=== PATIENT | male | born 1970 | race Caucasian/White ===

== ENCOUNTER 2018-01-14 21:58 | Emergency (ER) | payer BC ==
[2018-01-14 22:46] LABS: Anion Gap 14 mmol/L (10-20); BUN (Urea Nitrogen) 19 mg/dL (8.9-20.6); Calc. Creatinine Clearance 0 mL/min (70-130); Calcium 9.4 mg/dL (7.8-10.44); Carbon Dioxide 30 mmol/L (22-29); Chloride 98 mmol/L (98-107); Estimated GFR-MDRD 54; Glucose 77 mg/dL (70-105); Potassium 3.8 mmol/L (3.5-5.1); Sodium 138 mmol/L (136-145)
[2018-01-14] MEDS ORDERED: Ketorolac Tromethamine 60 MG/2 ML VIAL ONE (22:51)
[2018-01-14] MEDS ORDERED: Diazepam 5 MG TAB ONE (22:51)
--- NOTE | 2018-01-14 23:15 | RAD ---
FOUR VIEWS OF THE RIGHT KNEE: 01/14/18 COMPARISON: None. HISTORY: Chronic pain. FINDINGS: No knee joint effusion, fracture, or evidence of dislocation. There is mild patellofemoral joint spac e narrowing with posterior patellar osteophyte formation. IMPRESSION: No acute osseous abnormality. POS: LAURIE
== END 2018-01-14 23:33 | disposition home or self-care (01) ==
LOC: SCSER 21:58
DX: M70.41 Prepatellar bursitis, right knee (principal); G89.29 Other chronic pain; M54.5 Low back pain; E78.5 Hyperlipidemia, unspecified; J45.909 Unspecified asthma, uncomplicated; F17.220 Nicotine dependence, chewing tobacco, uncomplicated; Z79.899 Other long term (current) drug therapy
CPT/HCPCS: 80048; 96372; J1885

== ENCOUNTER 2018-03-10 16:13 | Emergency (ER) | payer BC ==
[~2018-03-10 16:13] MED LIST: ISOVUE-370 76%-LOCM 1 ML ONE
[2018-03-10 16:50] LABS: #Basophils 0.1 thou/uL (0.0-0.2); #Eosinphils 0.1 thou/uL (0.0-0.7); #Lymphocytes 2.2 thou/uL (1.20-3.40); #Monocytes 0.6 thou/uL (0.11-0.59); #Neutrophils 4.7 thou/uL (1.40-6.50); %Basophils 0.9 % (0.0-1.0); %Eosinophils 1.9 % (0.0-10.0); %Lymphocytes 28.6 % (21.0-51.0); %Monocytes 7.6 % (0.0-10.0); Hemoglobin 14.8 g/dL (14.0-18.0); Mean Corpuscular HGB CONC 35.2 g/dL (32.0-36.0); Mean Corpuscular Hemoglobin 30.2 pg (27.0-31.0); Mean Corpuscular Volume 85.9 fL (78.0-98.0); Mean Platelet Volume 8.9 fL (7.4-10.4); Platelet Count 195 thou/uL (130-400); RBC Distribution Width 12.7 % (11.5-14.5); White Blood Cell (WBC) Count 7.7 thou/uL (4.8-10.8)
[2018-03-10 17:05] LABS: ALT (SGPT) 29 U/L (8-55); AST (SGOT) 17 U/L (5-34); Albumin 4.1 g/dL (3.5-5.0); Alkaline Phosphatase 90 U/L (40-150); Anion Gap 13 mmol/L (10-20); BUN (Urea Nitrogen) 13 mg/dL (8.9-20.6); Bilirubin, Total 0.3 mg/dL (0.2-1.2); Calc. Creatinine Clearance 0 mL/min (70-130); Calcium 9.1 mg/dL (7.8-10.44); Carbon Dioxide 25 mmol/L (22-29); Chloride 103 mmol/L (98-107); Estimated GFR-MDRD 60; Globulin 3.4 g/dL (2.4-3.5); Glucose 88 mg/dL (70-105); Lipase 42 U/L (8-78); Potassium 4.4 mmol/L (3.5-5.1); Protein, Total 7.5 g/dL (6.0-8.3); Sodium 137 mmol/L (136-145)
[2018-03-10 18:57] LABS: Bilirubin Negative (Negative); Blood, Urine Negative (Negative); Clarity CLEAR (Clear); Glucose, Urine (Dipstick) Negative (Negative); Leukocyte Negative (Negative); Nitrite Negative (Negative); Protein, Urine (Dipstick) Negative (Neg-Trace); Specific Gravity, Urine 1.015 (1.002-1.036); pH, Urine 7.5 (5.0-9.0)
--- NOTE | 2018-03-10 19:18 | CT ---
CT ABDOMEN WITH CONTRAST CT PELVIS WITH CONTRAST: HISTORY: A 47-year-old male with generalized abdominal pain. TECHNIQUE: IV injection of iodinated contrast media: Isovue-370 70 mL. Oral contrast media: Not administered. FINDINGS: Liver: No focal solid mass. Diffusely low hepatic attenuation, consistent with fatty liver. Cholecy stectomy clips in the gallbladder fossa. Spleen: No splenomegaly. Pancreas: No mass or surrounding fat stranding. Adrenals: No mass. Kidneys: No hydronephrosis or enhancement abnormalities. Ureters: No dilation. Bladder: No pathology identified. Abdominal aorta: No aneurysm. Small bowel: No dilation. Colon: No adjacent fat stranding. Appendix: No dilation or adjacent fat stranding. Free air: None. Free fluid: None. IMPRESSION: 1. No major pathology identified. 2. Hepatic steatosis. 3. Status post cholecystectomy. [place] [] POS: LAURIE
== END 2018-03-10 19:44 | disposition home or self-care (01) ==
LOC: ERS 16:13
DX: K76.0 Fatty (change of) liver, not elsewhere classified (principal); E78.5 Hyperlipidemia, unspecified; I10 Essential (primary) hypertension; J45.909 Unspecified asthma, uncomplicated; F17.220 Nicotine dependence, chewing tobacco, uncomplicated; Z79.899 Other long term (current) drug therapy
CPT/HCPCS: 36415; 36416; 74177; 80053; 81003; 83690; 85025; 86140

== ENCOUNTER 2020-04-12 18:07 | Inpatient (IN) | payer BC, OTHER ==
[2020-04-12] MEDS ORDERED: Acetaminophen 500 MG TAB ONE (18:29)
[2020-04-12] MEDS ORDERED: Clindamycin/D5W 900 mg/50 ml Premix Bag ONE (18:29)
--- NOTE | 2020-04-12 18:47 | RAD ---
Exam: Chest one view HISTORY:Sepsis. Right leg pain. Comparison: 01/16/2015, 06/15/2018 FINDINGS: Cardiac silhouette: Normal Aorta: Unremarkable Pulmonary vessels: Normal Costophrenic angles: Clear LUNGS: No masses or consolidation. Diminished lung volumes, likely due to a poor inspiratory effort. Pneumothorax: None Osseous abnormalities: None IMPRESSION: No acute cardiopulmonary process.
[2020-04-12 18:49] LABS: Hemoglobin 16.2 g/dL (14.0-18.0); Mean Corpuscular HGB CONC 33.3 g/dL (32.0-36.0); Mean Corpuscular Volume 86.9 fL (78.0-98.0); Mean Platelet Volume 10.1 fL (7.4-10.4); Platelet Count 216 thou/uL (130-400); RBC Distribution Width 12.9 % (11.5-14.5); Red Blood Cell (RBC) Count 5.59 mill/uL (4.70-6.10); White Blood Cell (WBC) Count 15.9 thou/uL (4.8-10.8)
[2020-04-12] MEDS ORDERED: Fentanyl 100 MCG/2 ML VIAL ONE (19:12)
[2020-04-12 19:13] LABS: ALT (SGPT) 28 U/L (8-55); AST (SGOT) 23 U/L (5-34); Albumin 4.6 g/dL (3.5-5.0); Alkaline Phosphatase 98 U/L (40-110); Anion Gap 17 mmol/L (10-20); BUN (Urea Nitrogen) 16 mg/dL (8.9-20.6); Band 9 % (5-11); Bilirubin, Total 0.3 mg/dL (0.2-1.2); Calc. Creatinine Clearance 0 mL/min (70-130); Calcium 9.7 mg/dL (7.8-10.44); Carbon Dioxide 24 mmol/L (22-29); Chloride 102 mmol/L (98-107); Eosinophils 1 % (0-10); Estimated GFR-MDRD 69; Globulin 3.8 g/dL (2.4-3.5); Glucose 89 mg/dL (70-105); Lymphocytes 7 % (21-51); MDiff Complete? YES; Monocytes 6 % (0-10); Neutrophil 76 % (42-75); Platelet Morphology Comment Appears Adequate; Potassium 4.3 mmol/L (3.5-5.1); Protein, Total 8.4 g/dL (6.0-8.3); RBC Morphology Normal; Reactive Lymphocytes 1 % (0-10); Sodium 139 mmol/L (136-145)
[2020-04-12 19:37] LABS: Bilirubin Negative (Negative); Blood, Urine Negative (Negative); Clarity Clear (Clear); Glucose, Urine (Dipstick) Normal (Negative); Ketone, Urine Negative (Negative); Leukocyte Negative Leu/uL (Negative); Nitrite Negative (Negative); Protein, Urine (Dipstick) Negative (Neg-Trace); Specific Gravity, Urine 1.015 (1.002-1.036); Urobilinogen Normal mg/dL (Less than 2)
[2020-04-12] MEDS ORDERED: Ketorolac Tromethamine 30 MG/ML VIAL ONE (20:47)
[2020-04-12] MEDS ORDERED: cloNIDine 0.1 MG TAB PO PRN (21:47)
[2020-04-12] MEDS ORDERED: Promethazine HCl 12.5 MG in Sodium Chloride 0.9% 50 ML IVPB PRN (21:47)
[2020-04-12] MEDS ORDERED: Labetalol HCl 100 MG/20 ML VIAL SLOW IVP PRN (21:47)
[2020-04-12] MEDS ORDERED: hydrALAZINE 20 MG/ML VIAL SLOW IVP PRN (21:47)
[2020-04-12] MEDS ORDERED: Ondansetron PF 4 MG/2 ML Vial IVP PRN (21:47)
[2020-04-12 21:51] LABS: Lactic Acid 1.9 mmol/L (0.5-2.2)
[2020-04-12] MEDS ORDERED: Electrolyte Replacement Protoc 1 EACH EACH FS SCH (22:00)
[2020-04-12 23:46] VITALS: BMI 51.0
--- NOTE | 2020-04-13 00:40 | PDOC.HHP ---
Hospitalist HPI - History of Present Illness R leg rash History of Present Illness: Patient is a 49 year old male with PMH HTN, recurrent cellulitis presents to hospital with 1 day of RLE erythema, edema. Patient has several episodes of cellulitis on RLE which have responded to abx but then recurred. Patient reports groin pain which is typical of these episodes for him. in ED, febrile to 102, tachycardic to 137, WBC 15, lactic acid 2.9, given clindamycin, admitted for further workup and care Hospitalist ROS - Review of Systems Constitutional: reports: fever, chills, weakness, malaise. denies: sweats, other Eyes: denies: pain, vision change, conjunctivae inflammation, eyelid inflammation, redness, other ENT: denies: ear pain, ear discharge, nose pain, nose discharge, nose congestio n, mouth pain, mouth swelling, throat pain, throat swelling, other Respiratory: denies: cough, dry, shortness of breath, hemoptysis, SOB with excertion, pleuritic pain, sputum, wheezing, other Cardiovascular: denies: chest pain, palpitations, orthopnea, paroxysmal noc. dyspnea, edema, light headedness, other Genitourinary: denies: dysuria, frequency, incontinence, hematuria, retention, other Musculoskeletal: reports: leg pain, foot pain. denies: neck pain, shoulder pain, arm pain, back pain, hand pain, other Skin: reports: rash. denies: lesions, ria, bruising, other All other systems reviewed; all pertinent +/- noted in HPI/Subj Hospitalist History - Past Medical History Other Medical History: HTN cellulitis - Past Surgical History Other Surgical History: Surgical history of cholecystectomy, laparoscopic, Surgical history of hernia repair x 2, Surgical history of orthopedic surgery, L SHOULDER. - Family History Family History: reports: no pertinent history - Social History Alcohol: reports: None Drugs: reports: none - Exam General Appearance: NAD, awake alert Eye: PERRL, anicteric sclera ENT: normocephalic atraumatic, no oropharyngeal lesions, moist mucosa Neck: supple, symmetric, no JVD, no thyromegaly, no lymphadenopathy, no carotid bruit Heart: RRR, no murmur, no gallops, no rubs, normal peripheral pulses Respiratory: CTAB, no wheezes, no rales, no ronchi, normal chest expansion, no tachypnea, normal percussion Gastrointestinal: soft, non-tender, non-distended, normal bowel sounds, no palpable masses, no hepatomegaly, no splenomegaly, no bruit Extremities: no cyanosis, no clubbing Extremities - other findings: erythema and edema no purulence RLE anterior/lat eral, demarkated Skin: normal turgor, no lesions, no rashes Neurological: cranial nerve grossly intact, normal sensation to touch, no weakness, no focal deficits, no new deficit Musculoskeletal: normal tone, normal strength, no muscle wasting Psychiatric: normal affect, normal behavior, A&O x 3 Hospitalist Results - Labs Result Diagrams: 04/12/20 18:22 04/12/20 18:22 Lab results: WBC 15.9 thou/uL (4.8-10.8) H 04/12/20 18:22 Hgb 16.2 g/dL (14.0-18.0) 04/12/20 18: Hct 48.6 % (42.0-52.0) 04/12/20 18:22 MCV 86.9 fL (78.0-98.0) 04/12/20 18:22 Plt Count 216 thou/uL (130-400) 04/12/20 18:22 Band Neuts % (Manual) 9 % (5-11) 04/12/20 18:22 Sodium 139 mmol/L (136-145) 04/12/20 18:22 Potassium 4.3 mmol/L (3.5-5.1) 04/12/20 18:22 Chloride 102 mmol/L (98-107) 04/12/20 18:22 Carbon Dioxide 24 mmol/L (22-29) 04/12/20 18:22 BUN 16 mg/dL (8.9-20.6) 04/12/20 18:22 Creatinine 1.12 mg/dL (0.7-1.3) 04/12/20 18:22 Glucose 89 mg/dL (70-105) 04/12/20 18:22 Lactic Acid 1.9 mmol/L (0.5-2.2) 04/12/20 21:21 Calcium 9.7 mg/dL (7.8-10.44) 04/12/20 18:22 Total Bilirubin 0.3 mg/dL (0.2-1.2) 04/12/20 18:22 AST 23 U/L (5-34) 04/12/20 18:22 ALT 28 U/L (8-55) 04/12/20 18:22 Alkaline Phosphatase 98 U/L (40-110) 04/12/20 18:22 Serum Total Protein 8.4 g/dL (6.0-8.3) H 04/12/20 18:22 Albumin 4.6 g/dL (3.5-5.0) 04/12/20 18:22 Urine Ketones Negative mg/dL (Negative) 04/12/20 19:15 Urine Blood Negative (Negative) 04/12/20 19:15 Urine Nitrite Negative (Negative) 04/12/20 19:15 Ur Leukocyte Esterase Negative Price/uL (Negative) 04/12/20 19:15 Additional comment: VITAL SIGNS Tue Apr 12, 2020 22:01 JAMESON Sampson, Devyn BP: 149/75 Pulse: 122 Resp: 16 Temp: 100.0 (Oral) Pain: 4 O2 sat: 96 on (Room Air) Time: 04/12/2020 22:01. labs, imaging, ed documentation reviewed Hospitalist H&P A/P - Plan Plan: Patient is a 49 year old male with PMH HTN, recurrent cellulitis presents to hospital with 1 day of RLE erythema, edema. # RLE nonpurulent cellulitis - admit to floor - continue clindamycin - treat athletes foot w/ tolnaftate as possible port of entry for recurrent cellulitis - got 3L IVF in ED, monitor how he responds to this for now - follow cultures # HTN - PRN meds ordered, follow BP given sepsis DVT/GI ppx full code
[2020-04-13] MEDS: Clindamycin/D5W 600 MG in Premix Bag 1 BAG IVPB SCH ×2 (01:21→09:57)
[2020-04-13] MEDS: traMADol HCl 50 MG TAB PO PRN ×3 (01:22→19:49)
[2020-04-13] MEDS: Acetaminophen 325 MG TAB PO PRN ×4 (01:23→19:48)
[2020-04-13 05:56] LABS: #Lymphocytes 0.8 thou/uL (1.20-3.40); #Monocytes 0.7 thou/uL (0.11-0.59); #Neutrophils 16.1 thou/uL (1.40-6.50); %Basophils 0.2 % (0.0-1.0); %Eosinophils 0.1 % (0.0-10.0); %Lymphocytes 4.3 % (21.0-51.0); %Monocytes 3.9 % (0.0-10.0); %Neutrophils 91.6 % (42.0-75.0); Hemoglobin 13.3 g/dL (14.0-18.0); Mean Corpuscular HGB CONC 33.2 g/dL (32.0-36.0); Mean Corpuscular Hemoglobin 28.7 pg (27.0-31.0); Mean Corpuscular Volume 86.6 fL (78.0-98.0); Platelet Count 165 thou/uL (130-400); Red Blood Cell (RBC) Count 4.62 mill/uL (4.70-6.10); White Blood Cell (WBC) Count 17.6 thou/uL (4.8-10.8)
[2020-04-13 06:06] LABS: Anion Gap 14 mmol/L (10-20); BUN (Urea Nitrogen) 17 mg/dL (8.9-20.6); Calc. Creatinine Clearance 182 mL/min (70-130); Calcium 8.4 mg/dL (7.8-10.44); Carbon Dioxide 24 mmol/L (22-29); Chloride 103 mmol/L (98-107); Estimated GFR-MDRD 68; Glucose 122 mg/dL (70-105); Magnesium 1.4 mg/dL (1.6-2.6); Potassium 4.7 mmol/L (3.5-5.1); Sodium 136 mmol/L (136-145)
[2020-04-13] MEDS: Hydrochlorothiazide 25 MG TAB PO SCH (07:55)
[2020-04-13] MEDS: Famotidine 20 MG TAB PO SCH ×2 (07:56→19:48)
[2020-04-13] MEDS ORDERED: Magnesium Sulfate 4 GM in Sodium Chloride 0.9% 250 ML 250 ML IVPB SCH (08:15)
[2020-04-13 12:00] LABS: SARS-CoV-2 MS2 Positive; SARS-CoV-2 N Gene Negative; SARS-CoV-2 S Gene Negative; SARS-CoV-2 by NAA Not Detected (NotDetected); SARS-CoV-2 orf1ab Negative
--- NOTE | 2020-04-13 14:55 | PDOC.HOSPP ---
- Subjective Encounter Date: 04/13/20 Encounter Time: 10:50 Subjective: Patient lying. His right leg cellulitis seems to be improving in terms of the markings shows erythema is receding. He does have a chronic venous stasis as underlying. Ongoing dark patches around. He states that this is his second recurrent episode of the cellulitis. He has seen Dr. Mulligan few years ago. He is not diabetic. His white count is elevated further. His CRP is high - Objective Vital Signs & Weight: Vital Signs (12 hours) Temp Pulse Resp BP Pulse Ox 04/13/20 11:55 99.1 F 103 H 13 142/74 H 95 04/13/20 08:00 96 04/13/20 07:42 97.6 F 95 16 138/81 96 Weight Weight 366 lb 7 oz I&O: 04/12/20 04/13/20 04/14/20 06:59 06:59 06:59 Intake Total 560 Output Total 500 Balance 60 Result Diagrams: 04/13/20 05:30 04/13/20 05:30 Hospitalist ROS - Medication Medications: Active Medications Generic Name Dose Route Start Last Admin Trade Name Freq PRN Reason Stop Dose Admin Acetaminophen 650 mg 04/12/20 21:47 04/13/20 12:25 Acetaminophen 325 Mg Tab PO 650 mg Q4H PRN Administration Headache/Fever/Mild Pain (1-3) Famotidine 20 mg 04/13/20 09:00 04/13/20 07:56 Famotidine 20 Mg Tab PO 20 mg BID RAMBO Administration Hydrochlorothiazide 25 mg 04/13/20 09:00 04/13/20 07:55 Hydrochlorothiazide 25 Mg Tab PO 25 mg DAILY RAMBO Administration Clindamycin Phosphate/Dextrose 50 mls @ 100 mls/hr 04/13/20 02:00 04/13/20 09:57 600 mg/ Device IVPB 50 mls 0200,1000,1800 RAMBO Administration Tramadol HCl 50 mg 04/12/20 21:48 04/13/20 07:54 Tramadol Hcl 50 Mg Tab PO 50 mg Q6H PRN Administration Moderate Pain (4-6) - Exam General Appearance: NAD, awake alert General - other findings: Obese Eye: PERRL ENT: normocephalic atraumatic Neck: supple Heart: RRR, normal peripheral pulses Respiratory: CTAB, wheezes Gastrointestinal: soft, normal bowel sounds Extremities - other findings: His right leg cellulitis improving Skin - other findings: cellulitis Neurological: no focal deficits Psychiatric: A&O x 3 Hosp A/P - Plan # RLE cellulitis Recurrent cellulitis --This is his second episode the last one is in August 2019. -Previously a few years ago he had cellulitis in the same area. He does have some dark patches underneath superimposed cellulitis . - continue clindamycin -ID consult placed and notified --he may benefit with low-dose antibiotic as prophylaxis for a short course after this acuity resolved, since this is second episode. -Patient is not a diabetic - treat athletes foot w/ tolnaftate -CRP around 16 sed rate is insignificant. I do not suspect any deep infections including osteomyelitis at this point unless ID feels otherwise. May need MRI for confirmatory # HTN -He is on hydralazine as needed as well as hydrochlorothiazide. Obesity -Diet and exercise counseling when appropriate.
[2020-04-13] MEDS: CEFAZOLIN 2 GM in Premix Bag 1 BAG IVPB SCH (16:38)
[2020-04-13] MEDS: Enoxaparin Sodium 40 MG/0.4 ML SYRINGE SC SCH (19:49)
--- NOTE | 2020-04-13 22:48 | CON ---
DATE OF CONSULTATION: 04/13/2020 REASON FOR CONSULTATION: Cellulitis, right leg. HISTORY OF PRESENT ILLNESS: A 49-year-old, who has a history of hyperlipidemia, obesity, hypertension, and recurrent episodes of cellulitis in the right lower extremity usually once a year as well as asthma, who again has another episode of cellulitis, which developed over the past 24 hours with the usual sudden onset. He has some chills and general malaise, the usual symptoms that he presents with. No headaches. No visual symptoms, sore throat, odynophagia, or dysphagia. No shortness of breath, cough, or sputum production. No chest pain. No abdominal pain or diarrhea. No genitourinary symptoms. No bleeding. PAST MEDICAL HISTORY: Obesity, sleep apnea, asthma, hyperlipidemia, hypertension, cellulitis, recurrent, right lower extremity. SOCIAL HISTORY: Works as a intermodal truck driver. Chews tobacco, but does not smoke. Does not drink alcoholic beverages. Has a 5-year-old child in the house. PAST SURGICAL HISTORY: Includes cholecystectomy, hernia repair, shoulder repair. FAMILY HISTORY: Noncontributory. MEDICATIONS: At the moment, he is on; 1. DuoNeb. 2. Clindamycin. 3. Lovenox. 4. Pepcid. 5. Hydrochlorothiazide. PHYSICAL EXAMINATION: VITAL SIGNS: T-max 100.2, BP 140/70, heart rate 103, respirations 13, O2 saturation 95%. SKIN: Shows circumferential area of erythema with tenderness in right leg associated with swelling. The patient has lymphadenitis in the right groin. There is an area of lymphangitic spread in the right medial thigh, right side. HEENT: Not remarkable. NECK: Supple. LUNGS: Symmetric clear breath sounds. HEART: S1 and S2. Regular rate. No S3 or S4. ABDOMEN: Soft, not distended or tender. No ascites. No bladder distention. EXTREMITIES: No joint inflammatory activity. Pulses 1+ in dorsalis pedis. Plantar responses are flexor. NEUROLOGIC: His cognitive function appears to be intact. LABORATORY DATA: White cell count 15.9 and 17.6, hemoglobin 13, platelets 165, 91% neutrophils. Sodium 139, creatinine 1.12, glucose 89. Lactic acid 2.9 and 1.9. Liver profile normal. CRP 14, albumin 4.6. Serum total protein 8.4. Urinalysis normal. SARS-CoV serology negative. Two sets of blood cultures thus far no growth. Chest x-ray with no infiltrates. ASSESSMENT: Obesity, hypertension, asthma, venous insufficiency/venous hypertension in lower extremities with recurrent episodes of cellulitis in the right lower extremity with lymphangitis. Another one has had its onset yesterday. The most likely pathogens include beta-hemolytic streptococci. We will switch him to cefazolin 2 g q.8 and eventual transition to Keflex. Recently, two interventions have been demonstrated to be highly effective in preventing recrudescence of those episodes of cellulitis that includes the use of low dose penicillin VK as well as compression stockings. Those together should reduce almost 100% likelihood of recurrence. Job ID: [id number]
[2020-04-14] MEDS: CEFAZOLIN 2 GM in Premix Bag 1 BAG IVPB SCH ×3 (00:21→16:44)
[2020-04-14] MEDS: Famotidine 20 MG TAB PO SCH ×2 (08:51→19:56)
[2020-04-14] MEDS: Hydrochlorothiazide 25 MG TAB PO SCH (08:51)
[2020-04-14 10:07] LABS: #Eosinphils 0.1 thou/uL (0.0-0.7); #Lymphocytes 1.4 thou/uL (1.20-3.40); #Monocytes 0.7 thou/uL (0.11-0.59); #Neutrophils 11.5 thou/uL (1.40-6.50); %Basophils 0.3 % (0.0-1.0); %Eosinophils 0.6 % (0.0-10.0); %Lymphocytes 9.9 % (21.0-51.0); %Monocytes 5.1 % (0.0-10.0); Hemoglobin 12.3 g/dL (14.0-18.0); Mean Corpuscular HGB CONC 32.4 g/dL (32.0-36.0); Mean Corpuscular Hemoglobin 28.7 pg (27.0-31.0); Mean Corpuscular Volume 88.7 fL (78.0-98.0); Mean Platelet Volume 9.2 fL (7.4-10.4); Platelet Count 165 thou/uL (130-400); Red Blood Cell (RBC) Count 4.29 mill/uL (4.70-6.10); White Blood Cell (WBC) Count 13.7 thou/uL (4.8-10.8)
[2020-04-14] MEDS ORDERED: Magnesium 2 GM/50 ML 2 GM in Premix Bag 1 BAG IVPB SCH (10:45)
--- NOTE | 2020-04-14 14:52 | PDOC.HOSPP ---
- Subjective Encounter Date: 04/14/20 Encounter Time: 12:10 Subjective: Patient is sleeping. Erythema seems to be less intense today. Receding from the previous markings. he has no other acute complaints. Dr. Mulligan note reviewed - Objective Vital Signs & Weight: Vital Signs (12 hours) Temp Pulse Resp BP Pulse Ox 04/14/20 11:37 97.9 F 88 18 129/84 96 04/14/20 08:00 96 04/14/20 07:37 98.5 F 94 18 126/77 96 Weight Weight 366 lb 7 oz I&O: 04/13/20 04/14/20 04/15/20 06:59 06:59 06:59 Intake Total 560 1330 Output Total 500 3250 Balance 60 -1920 Result Diagrams: 04/14/20 10:01 04/13/20 05:30 Hospitalist ROS - Medication Medications: Active Medications Generic Name Dose Route Start Last Admin Trade Name Freq PRN Reason Stop Dose Admin Acetaminophen 650 mg 04/12/20 21:47 04/13/20 19:48 Acetaminophen 325 Mg Tab PO 650 mg Q4H PRN Administration Headache/Fever/Mild Pain (1-3) Enoxaparin Sodium 40 mg 04/13/20 21:00 04/13/20 19:49 Enoxaparin Sodium 40 Mg/0.4 Ml Syringe SC 40 mg 2100 RAMBO Administration Famotidine 20 mg 04/13/20 09:00 04/14/20 08:51 Famotidine 20 Mg Tab PO 20 mg BID RAMBO Administration Hydrochlorothiazide 25 mg 04/13/20 09:00 04/14/20 08:51 Hydrochlorothiazide 25 Mg Tab PO 25 mg DAILY RAMBO Administration Cefazolin Sodium/Dextrose 2 gm 50 mls @ 100 mls/hr 04/13/20 17:00 04/14/20 08:51 / Device IVPB 50 mls 0100,0900,1700 RAMBO Administration Tramadol HCl 50 mg 04/12/20 21:48 04/13/20 19:49 Tramadol Hcl 50 Mg Tab PO 50 mg Q6H PRN Administration Moderate Pain (4-6) - Exam General Appearance: NAD, awake alert Eye: PERRL ENT: normocephalic atraumatic Neck: supple Heart: RRR, normal peripheral pulses Respiratory: CTAB, normal chest expansion Gastrointestinal: normal bowel sounds Neurological: no focal deficits Psychiatric: A&O x 3 Hosp A/P - Plan # RLE cellulitis Recurrent cellulitis --This is his second episode the last one is in August 2019. -Previously a few years ago he had cellulitis in the same area. He does have some dark patches underneath superimposed cellulitis . - continue clindamycin -ID consult placed and notified --he may benefit with low-dose antibiotic as pr ophylaxis for a short course after this acuity resolved, since this is second episode. -Patient is not a diabetic - treat athletes foot w/ tolnaftate -CRP around 16 sed rate is insignificant. I do not suspect any deep infections including osteomyelitis at this point unless ID feels otherwise. May need MRI for confirmatory # HTN -He is on hydralazine as needed as well as hydrochlorothiazide. Obesity -Diet and exercise counseling when appropriate. 8th Chronic venous insufficiency Recurrent cellulitis possibly due to beta-hemolytic streptococci. -Antibiotics switched to cefazolin 2 g every 8 hours and plan to discharge with Keflex. He need compression stockings , once this acuity is resolved. and keep the legs elevated whenever he can
[2020-04-14] MEDS: Acetaminophen 325 MG TAB PO PRN (15:48)
[2020-04-14] MEDS: traMADol HCl 50 MG TAB PO PRN (19:56)
[2020-04-14] MEDS: Enoxaparin Sodium 40 MG/0.4 ML SYRINGE SC SCH (19:57)
[2020-04-15] MEDS: CEFAZOLIN 2 GM in Premix Bag 1 BAG IVPB SCH ×3 (00:35→17:14)
[2020-04-15 06:38] LABS: #Eosinphils 0.2 thou/uL (0.0-0.7); #Lymphocytes 1.7 thou/uL (1.20-3.40); #Monocytes 0.8 thou/uL (0.11-0.59); #Neutrophils 9.3 thou/uL (1.40-6.50); %Basophils 0.2 % (0.0-1.0); %Eosinophils 1.5 % (0.0-10.0); %Lymphocytes 14.3 % (21.0-51.0); %Monocytes 6.6 % (0.0-10.0); %Neutrophils 77.3 % (42.0-75.0); Mean Corpuscular HGB CONC 33.9 g/dL (32.0-36.0); Mean Corpuscular Hemoglobin 29.3 pg (27.0-31.0); Mean Corpuscular Volume 86.5 fL (78.0-98.0); Mean Platelet Volume 10.4 fL (7.4-10.4); Platelet Count 175 thou/uL (130-400); RBC Distribution Width 12.9 % (11.5-14.5); Red Blood Cell (RBC) Count 4.42 mill/uL (4.70-6.10)
[2020-04-15] MEDS ORDERED: Magnesium 2 GM/50 ML 2 GM in Premix Bag 1 BAG IVPB SCH (08:30)
[2020-04-15] MEDS ORDERED: Magnesium 2 GM/50 ML 20 GM in Premix Bag 1 BAG IVPB SCH (08:30)
[2020-04-15] MEDS: Hydrochlorothiazide 25 MG TAB PO SCH (08:59)
[2020-04-15] MEDS: Famotidine 20 MG TAB PO SCH ×2 (08:59→20:12)
--- NOTE | 2020-04-15 15:35 | PDOC.HOSPP ---
- Subjective Encounter Date: 04/15/20 Encounter Time: 12:10 Subjective: Patient is sleeping. Her leg again examined today. Erythema is receding however not improved enough to discharge him home. - Objective Vital Signs & Weight: Vital Signs (12 hours) Temp Pulse Resp BP BP Pulse Ox 04/15/20 11:23 98.5 F 85 20 132/74 96 04/15/20 09:11 96 04/15/20 08:00 98.0 F 78 20 117/70 96 04/15/20 05:10 98.1 F 85 18 125/69 97 Weight Weight 366 lb 7 oz I&O: 04/14/20 04/15/20 04/16/20 06:59 06:59 06:59 Intake Total 1330 360 Output Total 3250 1300 Balance -1920 -940 Result Diagrams: 04/15/20 05:30 04/13/20 05:30 Hospitalist ROS - Medication Medications: Active Medications Generic Name Dose Route Start Last Admin Trade Name Freq PRN Reason Stop Dose Admin Acetaminophen 650 mg 04/12/20 21:47 04/14/20 15:48 Acetaminophen 325 Mg Tab PO 650 mg Q4H PRN Administration Headache/Fever/Mild Pain (1-3) Enoxaparin Sodium 40 mg 04/13/20 21:00 04/14/20 19:57 Enoxaparin Sodium 40 Mg/0.4 Ml Syringe SC 40 mg 2100 RAMBO Administration Famotidine 20 mg 04/13/20 09:00 04/15/20 08:59 Famotidine 20 Mg Tab PO 20 mg BID RAMBO Administration Hydrochlorothiazide 25 mg 04/13/20 09:00 04/15/20 08:59 Hydrochlorothiazide 25 Mg Tab PO 25 mg DAILY RAMBO Administration Cefazolin Sodium/Dextrose 2 gm 50 mls @ 100 mls/hr 04/13/20 17:00 04/15/20 09:01 / Device IVPB 50 mls 0100,0900,1700 RAMBO Administration Sodium Chloride 10 ml 04/14/20 21:00 04/15/20 09:00 Flush - Normal Saline 10 Ml Syringe IVF 10 ml Q12HR RAMBO Administration Tramadol HCl 50 mg 04/12/20 21:48 04/14/20 19:56 Tramadol Hcl 50 Mg Tab PO 50 mg Q6H PRN Administration Moderate Pain (4-6) - Exam General Appearance: NAD, awake alert Eye: PERRL ENT: normocephalic atraumatic Neck: supple Heart: RRR Respiratory: CTAB, normal chest expansion Gastrointestinal: soft, normal bowel sounds Skin - other findings: Right leg cellulitis Neurological: no focal deficits Psychiatric: A&O x 3 Hosp A/P - Plan # RLE cellulitis Recurrent cellulitis --This is his second episode the last one is in August 2019. -Previously a few years ago he had cellulitis in the same area. He does have some dark patches underneath superimposed cellulitis . - continue clindamycin -ID consult placed and notified --he may benefit with low-dose antibiotic as prophylaxis for a short course after this acuity resolved, since this is second episode. -Patient is not a diabetic - treat athletes foot w/ tolnaftate -CRP around 16 sed rate is insignificant. I do not suspect any deep infections including osteomyelitis at this point unless ID feels otherwise. May need MRI for confirmatory # HTN -He is on hydralazine as needed as well as hydrochlorothiazide. Obesity -Diet and exercise counseling when appropriate. 8th Chronic venous insufficiency Recurrent cellulitis possibly due to beta-hemolytic streptococci. -Antibiotics switched to cefazolin 2 g every 8 hours and plan to discharge with Keflex. He need compression stockings , once this acuity is resolved. and keep the legs elevated whenever he can 9th Erythema is receding however not improved enough to discharge him home.
[2020-04-15] MEDS: Enoxaparin Sodium 40 MG/0.4 ML SYRINGE SC SCH (20:11)
[2020-04-16] MEDS: CEFAZOLIN 2 GM in Premix Bag 1 BAG IVPB SCH ×2 (00:42→08:40)
[2020-04-16 05:45] LABS: #Eosinphils 0.2 thou/uL (0.0-0.7); #Monocytes 0.7 thou/uL (0.11-0.59); #Neutrophils 6.3 thou/uL (1.40-6.50); %Basophils 0.4 % (0.0-1.0); %Monocytes 7.1 % (0.0-10.0); %Neutrophils 68.6 % (42.0-75.0); Hemoglobin 13.6 g/dL (14.0-18.0); Mean Corpuscular HGB CONC 33.9 g/dL (32.0-36.0); Mean Corpuscular Hemoglobin 29.2 pg (27.0-31.0); Mean Corpuscular Volume 86.2 fL (78.0-98.0); Mean Platelet Volume 9.6 fL (7.4-10.4); Platelet Count 219 thou/uL (130-400); RBC Distribution Width 12.7 % (11.5-14.5); Red Blood Cell (RBC) Count 4.64 mill/uL (4.70-6.10); White Blood Cell (WBC) Count 9.2 thou/uL (4.8-10.8)
[2020-04-16] MEDS: traMADol HCl 50 MG TAB PO PRN (06:56)
[2020-04-16] MEDS ORDERED: Magnesium 2 GM/50 ML 2 GM in Premix Bag 1 BAG IVPB SCH (07:15)
[2020-04-16 08:16] VITALS: BP 130/83; TEMP 98.2
[2020-04-16] MEDS: Famotidine 20 MG TAB PO SCH (08:36)
[2020-04-16] MEDS: Hydrochlorothiazide 25 MG TAB PO SCH (08:36)
--- NOTE | 2020-04-16 15:27 | DIS ---
DATE OF ADMISSION: 04/12/2020 DATE OF DISCHARGE: 04/16/2020 DISCHARGE DIAGNOSES: 1. Recurrent cellulitis, bilateral more on the right lower extremity than on the left. 2. Chronic venous insufficiency. 3. Obesity. 4. Hypertension. DISCHARGE MEDICATION: Keflex 500 mg twice a day daily for 10 days. PHYSICAL EXAMINATION: VITAL SIGNS: On the day of discharge, his temperature 98.2, pulse 76, blood pressure 130/83, saturating 96% on room air. SKIN: The patient's lower extremities still have ongoing erythema but much improved since admission. He does have a small blister on his right lower extremity, but he says that mostly these blisters are much more prominent on both legs prior to coming here. Now it appears just a small one. CARDIOVASCULAR: Regular rate and rhythm without murmurs, rubs, or gallops. LUNGS: Clear. He does have ongoing chronic venous stasis as underlying etiology. I have counseled him on compression stockings as well as elevation of the leg while he is sitting. This is a 49-year-old obese male, presented with recurrent cellulitis on his lower extremities. This is his 3rd episode this year. Because of the recurrence, I consulted Dr. Mulligan who felt that he would benefit with penicillin VK as well as compression stockings to prevent the recurrence in the future. During inpatient, he was started on clindamycin and transitioned to cefazolin 2 g q.8 and sent with Keflex upon discharge. I counseled him to follow with Dr. Mulligan and the patient agreed for followup. DISCHARGE INSTRUCTIONS: Activity as tolerated. Regular diet. Follow up with PCP in 1 week. Follow up with Dr. Mulligan, infectious specialist, per the clinic appointment. Discharge time over 35 minutes. Job ID: [id number] [facility]
== END 2020-04-16 11:16 | disposition home or self-care (01) | DRG 872 ==
LOC: ERS 18:07 → T4-B 19:55
PROVIDERS: ADMIT Internal Medicine; ATTEND Internal Medicine
DX: A41.9 Sepsis, unspecified organism (principal); L03.116 Cellulitis of left lower limb; L03.115 Cellulitis of right lower limb; Z68.43 Body mass index [BMI] 50.0-59.9, adult; Z20.828 Contact with and (suspected) exposure to other viral communicable diseases; I87.2 Venous insufficiency (chronic) (peripheral); E66.9 Obesity, unspecified; I10 Essential (primary) hypertension; E78.5 Hyperlipidemia, unspecified; J45.909 Unspecified asthma, uncomplicated; F17.220 Nicotine dependence, chewing tobacco, uncomplicated; B35.3 Tinea pedis; G47.30 Sleep apnea, unspecified; Z88.5 Allergy status to narcotic agent; Z88.8 Allergy status to other drugs, medicaments and biological substances; Z91.012 Allergy to eggs; Z90.49 Acquired absence of other specified parts of digestive tract; Z79.899 Other long term (current) drug therapy
CPT/HCPCS: 36415; 71045; 80048; 80053; 81003; 83605; 83735; 85025; 85652; 86140; 87040; 87635; 93005; 96361; 96365; 96375; J0690; J1650; J1885; J3010; J3475; J3490; J7050; U0003

== ENCOUNTER 2023-03-12 00:30 | Emergency (ER) | payer BC ==
[2023-03-12 00:51] LABS: Bacteria/HPF None Seen HPF (None Seen); Bilirubin Negative (Negative); Blood, Urine Negative (Negative); CAUTI Indications for Culture < 2yrs of age; Clarity Clear (Clear); Glucose, Urine (Dipstick) Normal (Negative); Ketone, Urine Negative (Negative); Leukocyte Negative Leu/uL (Negative); Nitrite Negative (Negative); Protein, Urine (Dipstick) 10 mg/dL (Neg-Trace); RBC/HPF 0-3 HPF (0-3); Specific Gravity, Urine 1.019 (1.002-1.036); Squamous Epithelial None Seen HPF (0-3); Urobilinogen Normal mg/dL (Less than 2); WBC/HPF 0-3 HPF (0-3)
[2023-03-12] MEDS ORDERED: Ondansetron PF 4 MG/2 ML Vial ONE (00:58)
[2023-03-12] MEDS ORDERED: Ketorolac Tromethamine 30 MG/ML VIAL ONE (00:58)
[2023-03-12 01:02] LABS: Urine Culture Reflex Yes Yes
[2023-03-12 01:25] LABS: #Basophils 0.1 thou/uL (0.0-0.2); #Eosinphils 0.2 thou/uL (0.0-0.7); #Monocytes 0.5 thou/uL (0.11-0.59); #Neutrophils 4.3 thou/uL (1.40-6.50); %Basophils 0.7 % (0.0-1.0); %Eosinophils 2.4 % (0.0-10.0); %Lymphocytes 32.1 % (21.0-51.0); %Monocytes 6.1 % (0.0-10.0); %Neutrophils 58.3 % (42.0-75.0); Hematocrit 44.4 % (42.0-52.0); Hemoglobin 14.9 g/dL (14.0-18.0); Mean Corpuscular HGB CONC 33.6 g/dL (32.0-36.0); Mean Corpuscular Hemoglobin 28.8 pg (27.0-31.0); Mean Corpuscular Volume 85.7 fl (78.0-98.0); Mean Platelet Volume 11.8 fL (7.4-10.4); Platelet Count 208 10x3/uL (130-400); RBC Distribution Width 13.4 % (11.5-14.5); Red Blood Cell (RBC) Count 5.18 mill/uL (4.70-6.10); White Blood Cell (WBC) Count 7.4 10x3/uL (4.8-10.8)
[2023-03-12 01:47] LABS: ALT (SGPT) 22 U/L (8-55); AST (SGOT) 19 U/L (5-34); Albumin 4.1 g/dL (3.5-5.0); Alkaline Phosphatase 93 U/L (40-110); Anion Gap 15 mmol/L (10-20); BUN (Urea Nitrogen) 18 mg/dL (8.4-25.7); Bilirubin, Total 0.3 mg/dL (0.2-1.2); Calc. Creatinine Clearance 0 mL/min (70-130); Calcium 9.4 mg/dL (7.8-10.44); Carbon Dioxide 25 mmol/L (22-29); Chloride 98 mmol/L (98-107); Estimated GFR 85; Globulin 3.3 g/dL (2.4-3.5); Glucose 95 mg/dL (70-105); Lipase 33 U/L (8-78); Potassium 4.1 mmol/L (3.5-5.1); Protein, Total 7.4 g/dL (6.0-8.3); Sodium 134 mmol/L (136-145)
[2023-03-12] MEDS ORDERED: Iopamidol-370 76% 500 ML MDV (1 ML CHARGE) ONE (10:47)
== END 2023-03-12 02:43 | disposition home or self-care (01) ==
LOC: ERS 00:30
DX: R10.9 Unspecified abdominal pain (principal); E78.5 Hyperlipidemia, unspecified; I10 Essential (primary) hypertension
CPT/HCPCS: 74177; 80053; 81001; 83690; 85025; 87086; 96374; 96375; J1885; J2405; Q9967